=== PATIENT | female | born 1985 | race Caucasian/White ===

== ENCOUNTER 2022-11-14 08:26 | Day surgery (SDC) | payer MEDICAID ==
[2022-11-14] MEDS ORDERED: Rocuronium 100 MG/10 ML MDV IV ONE (08:27)
[2022-11-14] MEDS ORDERED: Propofol 200 MG/20 ML SDV IV ONE (08:27)
[2022-11-14] MEDS ORDERED: diphenhydrAMINE 50 MG/ML SDV IVPUSH ONE (08:27)
[2022-11-14] MEDS ORDERED: Midazolam 1 MG/ML 2 ML SDV IV ONE (08:27)
[2022-11-14] MEDS ORDERED: Neostigmine Methylsulfate 10 MG/10 ML MDV IVPUSH ONE (08:27)
[2022-11-14] MEDS ORDERED: Glycopyrrolate 0.2 MG/ML 5 ML MDV IV ONE (08:27)
[2022-11-14] MEDS ORDERED: Ondansetron 4 MG/2 ML SDV IVPUSH ONE (08:27)
[2022-11-14] MEDS ORDERED: Ketorolac 30 MG/ML SDV IVPUSH ONE (08:27)
[2022-11-14] MEDS ORDERED: fentaNYL 100 MCG/2 ML SDV IV ONE ×2 (08:27)
[2022-11-14] MEDS ORDERED: Succinylcholine 200 MG/10 ML MDV IV ONE (08:27)
[2022-11-14] MEDS ORDERED: Dexamethasone 4 MG/ML 5 ML MDV IVPUSH ONE (08:27)
[2022-11-14] MEDS ORDERED: Lactated Ringers 1,000 ML IV SCH (08:30)
[2022-11-14] MEDS ORDERED: Sodium Chloride 0.9% 10 ML Syringe FLUSH PRN (08:30)
[2022-11-14] MEDS ORDERED: Acetaminophen 500 MG Tab PO ONE (09:14)
[2022-11-14] MEDS ORDERED: Gabapentin 300 MG Cap PO ONE (09:15)
[2022-11-14] MEDS ORDERED: Bupivacaine 0.25% 30 ML SDV INJECT ONE (10:31)
== END 2022-11-14 13:31 | disposition home or self-care (01) ==
LOC: FB.SDS 08:26
PROVIDERS: ATTEND Surgery
DX: K80.10 Calculus of gallbladder with chronic cholecystitis without obstruction (principal); F41.9 Anxiety disorder, unspecified; F32.A Depression, unspecified; Z98.890 Other specified postprocedural states; Z88.2 Allergy status to sulfonamides; Z79.899 Other long term (current) drug therapy
CPT/HCPCS: 00790; 47562; 81025; 88304; A9270; J0330; J1100; J1200; J1885; J2250; J2405; J2704; J2710; J3010; J3490; J7120